=== PATIENT | female | born 1980 | race Two or more races ===

== ENCOUNTER → 2020-09-08 11:30 | Outpatient (CLI) | payer OTHER | END | disposition home or self-care (01) | LOC: LAB 11:30 → EDBD 11:30 | PROVIDERS: ATTEND Emergency Medicine Pediatric Emergency Medicine | DX: Z03.818 Encounter for observation for suspected exposure to other biological agents ruled out (principal) ==

== ENCOUNTER 2020-11-15 15:10 | Outpatient (CLI) | payer OTHER | END 2020-11-15 15:11 | disposition home or self-care (01) | LOC: PPH VACUNA 15:10 | DX: Z23 Encounter for immunization (principal) ==

== ENCOUNTER 2021-02-14 19:45 | Emergency (ER) | payer OTHER ==
[~2021-02-14] VITALS: Ht 172.7 cm; Wt 74.8 kg
== END 2021-02-14 23:08 | disposition home or self-care (01) ==
LOC: ER 19:45
DX: K29.70 Gastritis, unspecified, without bleeding (principal)

== ENCOUNTER 2021-08-14 08:00 | Outpatient (CLI) | payer OTHER | END 2021-08-14 08:30 | disposition home or self-care (01) | LOC: PPH VACUNA 08:00 | PROVIDERS: ATTEND Emergency Medicine Pediatric Emergency Medicine | DX: Z23 Encounter for immunization (principal) ==

== ENCOUNTER 2021-09-12 11:49 | Outpatient (CLI) | payer OTHER | END 2021-09-12 11:50 | disposition home or self-care (01) | LOC: LAB 11:49 | PROVIDERS: ATTEND Obstetrics & Gynecology | DX: E04.1 Nontoxic single thyroid nodule (principal); N95.1 Menopausal and female climacteric states; E55.9 Vitamin D deficiency, unspecified; E78.00 Pure hypercholesterolemia, unspecified ==

== ENCOUNTER 2021-10-12 15:31 | Emergency (ER) | payer OTHER ==
[~2021-10-12] VITALS: Ht 172.7 cm; Wt 65.8 kg
[2021-10-12] MEDS ORDERED: NAPROXEN SODIU275 MG PO (18:51)
[2021-10-12] MEDS ORDERED: ORPHENADRINE C100 MG PO (18:51)
== END 2021-10-12 18:57 | disposition home or self-care (01) ==
LOC: ER 15:31
DX: M25.511 Pain in right shoulder (principal)